=== PATIENT | female | born 1960 ===

== ENCOUNTER 2023-07-14 16:58 | Observation (INO) | payer MEDICARE, MEDICAID ==
[2023-07-14] MEDS ORDERED: Sodium Chloride 0.9% 1,000 ML IV ONE ×2 (17:32→19:18)
[2023-07-14 18:07] LABS: BASOPHILS PERCENT AUTO 0.3 % (0.0-1.0); EOSINOPHILS PERCENT AUTO 2.2 % (1.0-3.0); HEMATOCRIT 45.4 % (37.0-47.0); HEMOGLOBIN 15.7 g/dL (12.0-16.0); MEAN CORPUSCULAR HEMOGLOBIN 32.4 pg (27.0-34.0); MEAN CORPUSCULAR HGB CONC 34.6 g/dL (33.0-35.0); MEAN CORPUSCULAR VOLUME 93.6 fL (80-100); MONOCYTES PERCENT AUTO 11.6 % (2-8); NEUTROPHILS PERCENT AUTO 72.9 % (42.2-75.2); PLATELET COUNT,PLT 273 10^3/uL (150-450); RED BLOOD CELL COUNT 4.85 10^6/uL (4.2-5.4); WHITE BLOOD CELL COUNT,WBC 11.3 10^3/uL (5.0-10.0)
[2023-07-14 18:15] LABS: APPEARANCE,URINE SLIGHTLY CLOUDY (CLEAR); BILIRUBIN,URINE NEGATIVE (NEGATIVE); COLOR,URINE YELLOW (YELLOW); GLUCOSE,URINE NEGATIVE (NEGATIVE); KETONES,URINE NEGATIVE (NEGATIVE); LEUKOCYTE ESTERASE,URINE SMALL (NEGATIVE); NITRITE,URINE NEGATIVE (NEGATIVE); OCCULT BLOOD,URINE SMALL (NEGATIVE); PH,URINE 5.5 (5.0-9.0); PROTEIN,URINE 30 (NEGATIVE); UROBILINOGEN,URINE 0.2 mg/dL (0.2-1.0)
[2023-07-14 18:17] LABS: AMPHETAMINES,URINE NEGATIVE (NEGATIVE); BARBITURATES,URINE NEGATIVE (NEGATIVE); BENZODIAZEPINE,URINE NEGATIVE (NEGATIVE); MDMA (ECSTASY), URINE NEGATIVE (NEGATIVE); METHADONE,URINE NEGATIVE (NEGATIVE); METHAMPHETAMINES,URINE NEGATIVE (NEGATIVE); OPIATES,URINE NEGATIVE (NEGATIVE); PHENCYCLIDINE,URINE NEGATIVE (NEGATIVE); TCA,URINE NEGATIVE (NEGATIVE)
[2023-07-14 18:18] LABS: OXYCODONE,URINE NEGATIVE (NEGATIVE)
[2023-07-14 18:31] LABS: BACTERIA,URINE MANY /HPF (0-FEW/HPF); EPITHELIAL CELLS,URINE FEW /HPF (NOT SEEN); GRANULAR CASTS,URINE FEW; HYALINE CASTS,URINE FEW; LACTIC ACID 1.4 mmol/L (0.4-2.0); MUCUS,URINE FEW /LPF (NOT SEEN); RBC,URINE 0-5 /HPF (0-5); WBC,URINE 40-50 /HPF (0-5/HPF)
[2023-07-14] MEDS: Sodium Chloride 0.9% 10 ML Syringe FLUSH PRN (18:33)
[2023-07-14 18:36] LABS: A/G RATIO 0.9; ALANINE AMINOTRANSFERASE,ALT 62 U/L (14-59); ALBUMIN 3.7 g/dL (3.4-5.0); ALKALINE PHOSPHATASE 106 U/L (46-116); ANION GAP 16.9 mEq/L (7-13); ASPARTATE AMNIOTRANSFERASE,AST 52 U/L (15-37); BILIRUBIN TOTAL 0.6 mg/dL (0.2-1.0); BLOOD UREA NITROGEN,BUN 29 mg/dL (7-18); BUN/CREATININE RATIO 11.7 (No establ ref range); C-REACTIVE PROTEIN 11.4 mg/dL (0.0-0.9); CALCIUM 9.1 mg/dL (8.5-10.1); CARBON DIOXIDE,CO2 27 mmol/L (21-32); CHLORIDE,CL 98 mmol/L (98-107); CREATININE 2.47 mg/dL (0.55-1.02); GLUCOSE RANDOM 109 mg/dL (70-99); MAGNESIUM 2.2 mg/dL (1.8-2.4); POTASSIUM,K 3.9 mmol/L (3.5-5.1); SODIUM,NA 138 mmol/L (136-145); TSH ULTRASENSITIVE 1.57 uIU/mL (0.36-3.74)
[2023-07-14 18:38] LABS: ESTIMATED GFR 21 mL/min (>=60)
[2023-07-14 18:39] LABS: ETHANOL BLOOD MEDICAL < 3 mg/dL (0)
[2023-07-14] MEDS ORDERED: cefTRIAXone 1 GM Vial IVPUSH ONE (19:19)
[2023-07-14] MEDS ORDERED: HYDROmorphone 0.5 MG/0.5 ML Syringe IVPUSH PRN (23:46)
[2023-07-14] MEDS ORDERED: Acetaminophen/oxyCODONE 325-5 MG Tab PO PRN (23:46)
[2023-07-14] MEDS ORDERED: Polyethylene Glycol 3350 Powder 17 GM Packet PO PRN (23:46)
[2023-07-14] MEDS ORDERED: Acetaminophen 325 MG Tab PO PRN (23:46)
[2023-07-14] MEDS ORDERED: Ondansetron 4 MG/2 ML SDV IVPUSH PRN (23:46)
[2023-07-14] MEDS ORDERED: Sennosides/Docusate Sodium 50-8.6 MG Tab PO PRN (23:46)
[2023-07-14] MEDS ORDERED: Magnesium Hydroxide 400 MG/5 ML Susp 30 ML Cup PO PRN (23:46)
[2023-07-14] MEDS ORDERED: Albuterol/Ipratropium 3.0-0.5 MG/3 ML Neb Soln NEB PRN (23:46)
[2023-07-14] MEDS ORDERED: Baclofen 10 MG Tab PO ONE (23:49)
[2023-07-14] MEDS ORDERED: Flumazenil 0.1 MG/ML 5 ML MDV IVPUSH PRN (23:51)
[2023-07-14] MEDS ORDERED: LORazepam 2 MG/ML SDV IVPUSH PRN (23:51)
[2023-07-14] MEDS ORDERED: hydrALAZINE 20 MG/ML SDV IVPUSH PRN (23:51)
[2023-07-15] MEDS: Sodium Chloride 0.9% 1,000 ML IV SCH ×2 (00:28→19:26)
[2023-07-15 07:01] LABS: ALBUMIN 2.9 g/dL (3.4-5.0); ANION GAP 15.6 mEq/L (7-13); BILIRUBIN TOTAL 0.6 mg/dL (0.2-1.0); C-REACTIVE PROTEIN 6.3 mg/dL (0.0-0.9); CALCIUM 8.2 mg/dL (8.5-10.1); CREATININE 1.05 mg/dL (0.55-1.02); EST CRCL DRUG DOSING (CG) 46.74 mL/min; MAGNESIUM 2.1 mg/dL (1.8-2.4); POTASSIUM,K 3.6 mmol/L (3.5-5.1); PROTEIN TOTAL,TP 6.5 g/dL (6.4-8.2)
[2023-07-15 07:04] LABS: A/G RATIO 0.81
[2023-07-15 08:09] LABS: BASOPHILS PERCENT AUTO 0.2 % (0.0-1.0); EOSINOPHILS PERCENT AUTO 3.2 % (1.0-3.0); HEMATOCRIT 37.9 % (37.0-47.0); LYMPHOCYTES PERCENT AUTO 12.2 % (20.5-50.1); MEAN CORPUSCULAR HEMOGLOBIN 32.7 pg (27.0-34.0); MEAN CORPUSCULAR HGB CONC 34.3 g/dL (33.0-35.0); MEAN CORPUSCULAR VOLUME 95.5 fL (80-100); MONOCYTES PERCENT AUTO 11.7 % (2-8); NEUTROPHILS PERCENT AUTO 72.7 % (42.2-75.2); PLATELET COUNT,PLT 210 10^3/uL (150-450); RED BLOOD CELL COUNT 3.97 10^6/uL (4.2-5.4); WHITE BLOOD CELL COUNT,WBC 8.5 10^3/uL (5.0-10.0)
[2023-07-15] MEDS: cefTRIAXone 1 GM Vial IVPUSH SCH (10:38)
[2023-07-15] MEDS: Saccharomyces Boulardii (Probiotic) 250 MG Cap PO SCH ×2 (10:38→21:10)
[2023-07-15] MEDS: Baclofen 10 MG Tab PO SCH ×2 (10:38→21:10)
[2023-07-15] MEDS: Sodium Chloride 0.9% 10 ML Syringe FLUSH PRN (21:15)
[2023-07-16 06:36] LABS: BASOPHILS PERCENT AUTO 0.5 % (0.0-1.0); EOSINOPHILS PERCENT AUTO 4.7 % (1.0-3.0); HEMATOCRIT 36.4 % (37.0-47.0); HEMOGLOBIN 12.3 g/dL (12.0-16.0); LYMPHOCYTES PERCENT AUTO 15.9 % (20.5-50.1); MEAN CORPUSCULAR HEMOGLOBIN 32.2 pg (27.0-34.0); MEAN CORPUSCULAR HGB CONC 33.8 g/dL (33.0-35.0); MEAN CORPUSCULAR VOLUME 95.3 fL (80-100); MONOCYTES PERCENT AUTO 13.9 % (2-8); PLATELET COUNT,PLT 196 10^3/uL (150-450); RED BLOOD CELL COUNT 3.82 10^6/uL (4.2-5.4); WHITE BLOOD CELL COUNT,WBC 5.5 10^3/uL (5.0-10.0)
[2023-07-16 06:50] LABS: ALBUMIN 2.5 g/dL (3.4-5.0); ANION GAP 11.2 mEq/L (7-13); BILIRUBIN TOTAL 1.8 mg/dL (0.2-1.0); BUN/CREATININE RATIO 12.7 (No establ ref range); C-REACTIVE PROTEIN 3.3 mg/dL (0.0-0.9); CALCIUM 8.1 mg/dL (8.5-10.1); CREATININE 0.79 mg/dL (0.55-1.02); EST CRCL DRUG DOSING (CG) 62.12 mL/min; MAGNESIUM 2.1 mg/dL (1.8-2.4); POTASSIUM,K 3.2 mmol/L (3.5-5.1); PROTEIN TOTAL,TP 5.9 g/dL (6.4-8.2)
[2023-07-16 07:08] LABS: A/G RATIO 0.74
[2023-07-16] MEDS: cefTRIAXone 1 GM Vial IVPUSH SCH (08:39)
[2023-07-16] MEDS: Saccharomyces Boulardii (Probiotic) 250 MG Cap PO SCH (08:39)
[2023-07-16] MEDS: Sodium Chloride 0.9% 10 ML Syringe FLUSH PRN (08:39)
[2023-07-16] MEDS: Baclofen 10 MG Tab PO SCH (08:39)
[2023-07-16 12:35] LABS: A/G RATIO 0.72; ALBUMIN 2.6 g/dL (3.4-5.0); ANION GAP 11.2 mEq/L (7-13); BUN/CREATININE RATIO 10.8 (No establ ref range); CREATININE 0.83 mg/dL (0.55-1.02); EST CRCL DRUG DOSING (CG) 59.13 mL/min; POTASSIUM,K 3.2 mmol/L (3.5-5.1); PROTEIN TOTAL,TP 6.2 g/dL (6.4-8.2)
[2023-07-16] MEDS ORDERED: Iopamidol 612 MG/ML 100 ML Bottle IVPUSH ONE (12:52)
[2023-07-16] MEDS ORDERED: Iopamidol 755 Mg/ML 100 ML Bottle IVPUSH ONE (13:12)
[2023-07-16] MEDS ORDERED: Potassium Chloride 20 MEQ in Premix Bag 1 BAG IV ONE (14:52)
== END 2023-07-16 15:33 ==
LOC: DL.ED 16:58 → DL.MS 20:51
PROVIDERS: ADMIT Internal Medicine; ATTEND Internal Medicine
DX: G93.41 Metabolic encephalopathy (principal); N39.0 Urinary tract infection, site not specified; B96.20 Unspecified Escherichia coli [E. coli] as the cause of diseases classified elsewhere; N17.9 Acute kidney failure, unspecified; E86.0 Dehydration; R53.1 Weakness; G47.00 Insomnia, unspecified; K80.20 Calculus of gallbladder without cholecystitis without obstruction; E83.52 Hypercalcemia; R26.81 Unsteadiness on feet; R47.1 Dysarthria and anarthria; G83.9 Paralytic syndrome, unspecified; Z87.820 Personal history of traumatic brain injury; Z79.899 Other long term (current) drug therapy
CPT/HCPCS: 36415; 70450; 74178; 76770; 80053; 80305; 80307; 81001; 82140; 82306; 83605; 83690; 83735; 84145; 84443; 84484; 85025; 86140; 87040; 87086; 87088; 87186; 93005; 96361; 96374; 97161; 99285; A9270; C1758; J0696; J2405; J3480; J7030; Q9967; 96375; 96376; 99222; G0378; J3490

== ENCOUNTER → 2023-09-19 | Day surgery (SDC) | payer MEDICARE, MEDICAID ==
[~2023-09-19] MED LIST: Dextrose 5%-0.45% NaCl 1,000 ML IV SCH; Midazolam 1 MG/ML 2 ML SDV IV ONE; Midazolam 1 MG/ML 2 ML SDV ONE; fentaNYL 100 MCG/2 ML SDV IV ONE; fentaNYL 100 MCG/2 ML SDV ONE
== END | disposition home or self-care (01) ==
LOC: DL.ENDO 05:57
PROVIDERS: ATTEND Internal Medicine Gastroenterology
DX: K44.9 Diaphragmatic hernia without obstruction or gangrene (principal); E78.5 Hyperlipidemia, unspecified; Z79.899 Other long term (current) drug therapy; Z98.890 Other specified postprocedural states
CPT/HCPCS: J2250; J3010; J7042